=== PATIENT | male | born 1960 | race Hispanic/Latino ===

== ENCOUNTER 2018-11-22 08:40 | Day surgery (SDC) | payer MEDICAID ==
[~2018-11-22] VITALS: Ht 172.7 cm; Wt 85.1 kg
[~2018-11-22 08:40] MED LIST: SODIUM CHLORIDE 0.9% 1000ML 1,000 ML IV ONE
[2018-11-22 09:12] VITALS: BP 160/88
[2018-11-22] MEDS ORDERED: PROPOFOL 10 MG/ML 20ML VIAL IV ONE (09:43)
[2018-11-22 09:51] VITALS: BP 132/75
[2018-11-22 09:56] VITALS: BP 143/82
[2018-11-22 10:02] VITALS: BP 143/87
== END 2018-11-22 10:30 | disposition home or self-care (01) ==
LOC: DAH 08:40 → ENDO 08:40
PROVIDERS: ATTEND Internal Medicine
DX: K22.70 Barrett's esophagus without dysplasia (principal); K31.89 Other diseases of stomach and duodenum; B96.81 Helicobacter pylori [H. pylori] as the cause of diseases classified elsewhere; K29.50 Unspecified chronic gastritis without bleeding; J44.9 Chronic obstructive pulmonary disease, unspecified; I10 Essential (primary) hypertension; I25.10 Atherosclerotic heart disease of native coronary artery without angina pectoris; E78.5 Hyperlipidemia, unspecified; F32.9 Major depressive disorder, single episode, unspecified; Z86.73 Personal history of transient ischemic attack (TIA), and cerebral infarction without residual deficits; K44.9 Diaphragmatic hernia without obstruction or gangrene; E11.9 Type 2 diabetes mellitus without complications; Z79.01 Long term (current) use of anticoagulants; Z79.899 Other long term (current) drug therapy; Z85.51 Personal history of malignant neoplasm of bladder; I21.3 ST elevation (STEMI) myocardial infarction of unspecified site; E55.9 Vitamin D deficiency, unspecified; Z98.890 Other specified postprocedural states
CPT/HCPCS: 43239; 82948 ×2; 88305; 88312; 93005; A4606; J2704; J7030

== ENCOUNTER 2020-05-21 07:06 | Day surgery (SDC) | payer MEDICAID ==
[2020-05-21] MEDS ORDERED: METO25TA6 PO (08:22)
[2020-05-21] MEDS ORDERED: ATOR40TA71 PO (08:22)
[2020-05-21] MEDS ORDERED: METF-446 PO (08:22)
[2020-05-21] MEDS ORDERED: OMEP40CA13 PO (08:22)
[2020-05-21] MEDS ORDERED: AMLO5TAB9 PO (08:22)
[2020-05-21] MEDS ORDERED: ACET-3194 PO (08:22)
[2020-05-21] MEDS ORDERED: CLOP75TA32 PO (08:22)
[2020-05-21] MEDS ORDERED: HYDR25TA PO (08:22)
[2020-05-21] MEDS ORDERED: ASPI-1197 PO (08:22)
[2020-05-21] MEDS ORDERED: ISOS60TA4 PO (08:22)
[2020-05-21] MEDS ORDERED: TAMS-1 PO (08:22)
[2020-05-21] MEDS ORDERED: NITR0.4T50 SL (08:22)
[2020-05-21 10:05] VITALS: BP 133/71
[2020-05-21 10:10] VITALS: BP 121/71
[2020-05-21 10:15] VITALS: BP 128/75
[2020-05-21 10:20] VITALS: BP 143/81
[2020-05-21 10:25] VITALS: BP 144/81
== END 2020-05-21 10:55 | disposition home or self-care (01) ==
LOC: ENDO 07:06 → DAH 07:06 → ENDO 10:55
PROVIDERS: ATTEND Internal Medicine
DX: R13.10 Dysphagia, unspecified (principal); K22.70 Barrett's esophagus without dysplasia; K44.9 Diaphragmatic hernia without obstruction or gangrene; K31.89 Other diseases of stomach and duodenum; J44.9 Chronic obstructive pulmonary disease, unspecified; I25.2 Old myocardial infarction; I25.10 Atherosclerotic heart disease of native coronary artery without angina pectoris; I10 Essential (primary) hypertension; E11.9 Type 2 diabetes mellitus without complications; Z86.73 Personal history of transient ischemic attack (TIA), and cerebral infarction without residual deficits; E78.5 Hyperlipidemia, unspecified; F32.9 Major depressive disorder, single episode, unspecified; Z11.59 Encounter for screening for other viral diseases
CPT/HCPCS: 43239; A4215; A4221; A4222; A4223; A4606; A4620; A4657; A4663; C9803; J7030; U0003